=== PATIENT | female | born 1940 | race Caucasian/White ===

== ENCOUNTER 2024-09-22 03:46 | Inpatient (IN) | payer OTHER, SELFPAY ==
[2024-09-21 16:26] VITALS: BP 185/70
[2024-09-21 16:57] LABS: % Basophils 0.6 % (0-2); % Eosinophils 0.8 % (0-6); % Immature Granulocytes 0.4 % (0-0.5); % Lymphocytes 25.7 % (20.5-51.1); % Monocytes 5.5 % (1.7-9.3); Absolute Eosinophils 0.1 10^3/uL (0-0.7); Absolute Lymphocytes 1.8 10^3/uL (1.2-3.4); Absolute Monocytes 0.4 10^3/uL (0.1-0.6); Absolute Neutrophils 4.8 10^3/uL (1.4-6.5); Hematocrit 40.3 % (37.0-47.0); Hemoglobin 14.2 g/dL (12.0-16.0); Mean Corp Hgb Conc. 35.2 g/dL (33.0-37.0); Mean Corpuscular Hgb 31.3 pg (27.0-31.0); Mean Platelet Volume 9.8 fL (7.4-10.4); Nucleated Red Blood Cells % 0 %; Platelet Count 231 10^3/uL (130-400); Red Blood Cell Count 4.53 10^6/uL (4.20-5.40); White Blood Cell Count 7.1 10^3/uL (4.8-10.8)
[2024-09-21 17:04] LABS: ALT (SGPT) 15 U/L (0-35); AST (SGOT) 21 U/L (14-36); Albumin 4.4 g/dl (3.5-5.0); Alkaline Phosphatase 78 U/L (38-126); Blood Urea Nitrogen 14 mg/dl (7-17); Calcium 9.6 mg/dl (8.4-10.2); Carbon Dioxide 27 mmol/L (22-30); Chloride 102 mmol/L (98-107); Glucose 96 mg/dl (70-99); Potassium 4.3 mmol/L (3.5-5.1); Sodium 137 mmol/L (135-145); Total Bilirubin 0.3 mg/dl (0.2-1.3); Total Protein 7.3 g/dl (6.3-8.2); eGFR > 60.00
[2024-09-21 20:30] VITALS: BMI 22.9
[2024-09-21 20:33] VITALS: BP 162/61
[2024-09-21 21:00] VITALS: BP 164/58
[2024-09-21 22:00] VITALS: BP 159/62
--- NOTE | 2024-09-21 22:44 | ED.GENMED ---
History of Present Illness
General
Chief Complaint: Dizziness
Time Seen by Provider: 09/21/24 21:18
History of Present Illness
History of Present Illness:
83-year-old female with history of GERD and anxiety presenting for dizziness. Patient reports dizzy symptoms on and off for the past week. She reports send if worsened a few days ago when she stood up fast, felt also symptom onset, episode of
double vision which has since resolved. She went to an urgent care prior to arrival, was told that her blood pressure was very high and was told to come to the emergency department. Denies any known history of high blood pressure. Denies any
present chest pain or difficulty breathing. Denies any focal weakness or numbness to her extremities. Denies abdominal pain or GI symptoms. Does note some pressure in her ear, had a COVID infection about 2 weeks ago. Denies any present
dizziness. Denies additional acute medical complaints
Phy Exam
Physical Exam
Physical Exam:
General: Well-appearing, no clinical signs of dehydration, nontoxic and in no acute distress
HEENT: protecting airway, pupils equal and reactive bilaterally, extraocular movements intact
Neck: appears supple
CV: Normal heart rate, regular rhythm
Resp: No accessory muscle use, no increased work of breathing, lungs clear to auscultation bilaterally
Abd: Soft and non-distended, no tenderness to palpation
Extremities: No deformities, no swelling, no erythema
Neuro: alert, no focal neurologic deficit
: deferred
Rectal: deferred
Psych: Normal affect
Skin: Intact
Scores
NIH Stroke Score
Level of Consciousness: 0 - Alert
LOC Questions: 0-Answers both correctly
LOC Commands: 0-Performs both correctly
Best Horizontal Gaze: 0-Normal
Visual Langston: 0=Normal, no visual loss
Facial Palsy: 0=Normal, symmetrical
Motor - Right Arm: 0=No drift 10 seconds
Motor - Left Arm: 0=No drift 10 seconds
Motor - Right Le-No drift 5 seconds
Motor - Left Le-No drift 5 seconds
Limb Ataxia: 0-Absent
Sensation: 0-Normal
Best Language: 0-No aphasia
Dysarthria: 0-Normal
Extinction and Inattention: 0-No abnormality
Total Score:: 0
Course
Orders/Labs/Results
Orders:
Orders
09/21/24 16:31
Electrocardiogram (*1) Urgent
Reason for Study: Vertigo / Dizzy
EKG- Treatment ONCE
09/21/24 16:39
Complete Blood Count/With Diff Urgent
Comprehensive Metabolic Panel Urgent
09/21/24 22:41
Orthostatic VS- Treatment ONCE
09/22/24 00:01
CT Head & Neck Angio W/wo IV Urgent
Reason For Exam: dizzy, double vision episode
09/22/24 01:20
Aspirin 325 mg PO NOW STA
Clopidogrel Bisulfate [Plavix] 75 mg PO NOW STA
09/22/24 02:15
Admit/Transfer Patient As Directed
Co-Sign Provider:
Level of Care: Inpatient admission
Assign to:: Telemetry
Physician / Group: [facility]
Diagnosis: CVA
Reason for Telemetry: CVA/TIA
Date to Stop Telemetry: 09/25/24
Time to Stop Telemetry: 11:00
Reason for Hospitalization: CVA
Expected length of stay greater than two midnights?: Yes
ELOS- Estimated Length of Stay in days: 3
I certify the patient meets the requirements for IP care: Yes
Code Status As Directed
Resuscitation Status: Full Code
PRN Pain Medication Management As Directed
May give lesser potent ordered pain med per pt: Yes
preference::
Protocol:: Medication orders for pain may be administered in a
manner that supports deferring to patient preference
when the pt is:
- Requesting an ordered lesser potent pain medication.
Least to most potent pain medications are defined
as: acetaminophen < NSAID < tramadol < opioids
(morphine, oxycodone, hydromorphone).
- Requesting a lesser dose of the same medication IF
ORDERED.
- Requesting a less intrusive route of administration
if both routes are prescribed by the provider (PO <
IV).
09/22/24 04:25
Acetaminophen [Tylenol] 1,000 mg PO QID PRN
Lorazepam [Ativan] 0.5 mg PO HS PRN
09/22/24 04:25
Consult Notification Routine
Specialty to Notify: Neurology
Date consulting provider notified: 09/22/24
Time consulting provider notified: 08:52
Notified:: Provider
NEUROLOGY CONSULT Routine
Consulting Provider: Jim Boles
Was physician already notified: No
Reason for consult: CVA
Activity As Directed
Activity Level: Ambulate
With Assistance
EKG with chest pain [ECG as needed] As Directed
ECG as needed for:: Chest Pain
I/O [Intake/ Output] As Directed
Frequency: Per unit guidelines
NIH Stroke Scale As Directed
Neurological Checks As Directed
Frequency: q4h
Pneumatic Compression Sleeves As Directed
Type: Knee high
Vital Signs As Directed
Frequency: Per unit guidelines
Oxygen Therapy [O2 Therapy] [RESP] Routine
Titrate/Wean O2 to maintain O2 sat greater than (%): 94
Ot Eval And Treat Routine
PT Consult [Pt Eval And Treat] Routine
Activity Level: Ambulate
With Assistance
DX Deep Vein Thrombosis Video Routine
09/22/24 06:00
EKG [Electrocardiogram (*1)] IN AM
Reason for Study: Chest Pain
Regular
At Your Request: Full Participation
Does patient need a safe tray?: No
MR Brain Without Contrast IN AM
Comment:
Reason For Exam: CVA / TIA
Recent pill cam endoscopy?: No
09/22/24 06:15
Basic Metabolic Panel IN AM
Cardiovascular Evaluation IN AM
Complete Blood Count/No Diff IN AM
Glycohemoglobin (HgbA1c) Routine
TSH Reflex To Free T4 Routine
09/22/24 08:00
Aspirin Chewable [Low Strength Aspirin] 81 mg PO DAILY
Clopidogrel Bisulfate [Plavix] 75 mg PO DAILY
09/25/24 11:00
DC Protocol for Telemetry ONCE
Abnormal Lab Results
09/21/24
16:39
MCH 31.3 H pg
(27.0-31.0)
09/21/24 16:39
09/21/24 16:39
Vital Signs
Initial and Last Documented VS:
Initial Vital Signs
Temp Pulse Resp BP Pulse Ox
97.3 F 74 18 185/70 99
09/21/24 16:26 09/21/24 16:26 09/21/24 16:26 09/21/24 16:26 09/21/24 16:26
Last Documented Vital Signs
Temp Pulse Resp BP Pulse Ox
97.6 F 79 18 119/57 94
09/22/24 15:29 09/22/24 15:29 09/22/24 15:29 09/22/24 15:29 09/22/24 15:29
MDM/Problems Addressed
MDM/Problems Addressed:
83-year-old female with history of GERD and anxiety presenting for dizziness for the past week. Vital signs on arrival are significant for high blood pressure which has improved without intervention.
On exam patient is comfortable sitting comfortably, denies any present dizziness. Neurologic exam is benign, no focal neurologic deficits, and again patient is currently asymptomatic. Prior to arrival, was noted to have hypotension at urgent care
with primary concern for hypertensive urgency versus emergency. Lower suspicion for hypertensive urgency or emergency at this time given improved blood pressure without any medications. Patient had screening laboratory analysis and EKG completed
prior to my assessment, without any evidence of endorgan dysfunction. Vertiginous component is a consideration, notes that symptoms are worse first certain fast movements and when standing up. Also noted some left ear pressure. Normal appearance
of TMs bilaterally. Given preceding episode of double vision several days ago, will screen with CT brain and CT angio to ensure no acute occlusions or intracranial abnormality. Will also ambulate and obtain orthostatics
01:10 -CT is abnormal, shows age-indeterminate hypodensity within the left cerebellum, which does fit with patient's symptoms. On CT angio there is severe narrowing versus age-indeterminate partial occlusion of the right intradural vertebral
artery, as well as likely nonocclusive thrombus in the proximal basilar artery, and severe narrowing of the right BODY AND FENDER WORKER versus nonocclusive thrombus within the right BODY AND FENDER WORKER. In discussion with neurology, aspirin, Plavix, MRI. Will plan for admission
for continued stroke workup
*EKG
Interpreted by ED Provider?: Yes
EKG Intrepretation Date: 09/21/24
EKG Intrepretation Time: 22:46
Interpretation: normal
Comparison EKG: no comparison EKG present
Heart Rate: 66
Rate: normal
Rhythm: sinus
[place]: normal axis
Interval: normal interval
QRS Pattern: normal QRS
Ischemia: no ischemia
*Critical Care Note
Total Time (30-74mins, 75-104mins- exclusive of procedures): Not Applicable
ED Attending Note
-
Portions of this chart may have been created with voice recognition software.� Occasional wrong word or��sound alike� substitutions may have occurred due to the inherent limitations of voice recognition software.
Discharge Plan
Departure
Patient Disposition: Admit
Date of Disposition: 09/22/24
Time of Disposition: 01:22
Presentation/result/management discussed w/ accepting MD/DO: Hospitalist
Patient with high blood pressure during this ER visit?: Yes
Discharge Problem:
Dizziness, Cerebellar infarct
Interventions
Interventions:
*Risk Screen - Suicide Last Done: 09/21/24 20:30
*General Assessment Last Done: 09/21/24 20:30
*Neglect/Abuse Screening Last Done: 09/21/24 20:30
*ED COVID-19 Vaccine History Last Done: 09/21/24 20:30
*Nursing Disposition Last Done: 09/22/24 07:46
ED- Neurological Assessment Last Done: 09/22/24 03:15
ED- Cardiac Assessment Last Done: 09/21/24 20:35
ED Swallowing Screen Last Done: 09/22/24 01:32
Discharge Date and Time
Discharge Date/Time: 09/22/24 07:48
[2024-09-21 23:00] VITALS: BP 159/65
[2024-09-22] VITALS (12 sets, daily range): BP systolic 119–184; BP diastolic 47–76; PULSE 68–89; O2SAT 94–95
[2024-09-22] MEDS: ASPIRIN 325 MG PO (01:39)
[2024-09-22] MEDS: PLAVIX 75 MG PO ×2 (01:39→08:56)
--- NOTE | 2024-09-22 02:18 | HPS.HSE ---
Family Physician
-
Family Physician: Nory Lawrence
Chief Complaint
-
Dizziness
History of Present Illness
Patient is an 83y F with PMH significant for GERD and anxiety who presents to ED complaining of dizziness x several days. Patient states that symptoms initially started about 5 days ago. She noted dizziness, room spinning sensation and unsteady
gait. She states that she felt as if her eyes were 'jumping around'. She has had a mild / generalized headache. Patient states that she has not fallen despite her symptoms. She denies any priro history of vertigo or other similar symptoms.
Patient presented to the ED today for further evaluation.
Medical History
Past Medical History
Past Medical History: Reports Other
Additional Past Medical History:
GERD
Anxiety
Remote History of Migraine Headaches (none x several years)
Past Surgical History: Reports Other
Additional Past Surgical History:
Tubal Ligation
Social History
Tobacco: Former Smoker (Quit smoking 40 years ago. Approx 15 pack years total use.)
Alcohol: Occasional
Drug: None
Personal:
Living: With Family
Family History
Family History: Other (Father: CVA / Carotid Disease)
Allergies / Home Medications
Allergies reflects when Allergies were last updated in [facility].
Home Medications with original date entered in [facility]
Allergy/Medication List:
Allergies
Allergy/AdvReac Type Severity Reaction Status Date / Time
No Known Allergies Allergy Verified 09/21/24 20:30
Home Medications
acetaminophen 500 mg tablet 1,000 mg PO QID PRN back pain 09/22/24
lorazepam 0.5 mg tablet 0.5 mg PO HS PRN sleep 09/22/24
omeprazole 20 mg tablet,delayed release 20 mg PO DAILY 09/22/24
tramadol 50 mg tablet 50 mg PO DAILY PRN back pain 09/22/24
Review of Systems
-
History Source: Patient
A 12 point ROS was completed and negative except as noted: Yes
Constitutional: Reports Fatigue; Denies Fever or Chills
EENT: Denies Sore Throat
Respiratory: Denies Cough or Trouble Breathing
Cardiac: Denies Chest Pain or Palpitations
Abdomen/GI: Denies Abdominal Pain, Nausea, Vomiting or Diarrhea
: Denies Dysuria or Frequency
Musculoskeletal: Denies Joint Pain or Edema
Neurological: Reports Dizzy and Headache; Denies Weakness or Numbness
Psych: Denies Depression or Anxiety
Physical Exam
Vital Signs
Vital Signs
Temp Pulse Resp BP Pulse Ox
98.2 F 67 19 134/51 95
09/21/24 20:33 09/22/24 00:15 09/22/24 00:15 09/22/24 00:00 09/22/24 00:15
Physical Exam
General: Other (83y F in no acute distress.)
HEENT: Moist mucous membranes and PERRLA
Respiratory: Clear; No Wheezes, Rales or Rhonchi
Cardiac: S1/S2, Regular Rhythm and Murmur (II/ CORI)
GI: Soft, Non Tender, Non Distended and Normal Bowel Sounds
Musculoskeletal: No Clubbing, No Cyanosis and No Edema
Neuro: AO x 3
Laboratory Results
-
09/21/24 16:39
09/21/24 16:39
Laboratory Results
Total Bilirubin 0.3 mg/dl (0.2-1.3) 09/21/24 16:39
AST 21 U/L (14-36) 09/21/24 16:39
ALT 15 U/L (0-35) 09/21/24 16:39
Alkaline Phosphatase 78 U/L (38-126) 09/21/24 16:39
Impression/Plan
-
A/P: Patient is an 83y F with PMH significant for GERD and anxiety who presents to ED complaining of dizziness.
Cerebellar CVA
Posterior Circulation Stenosis / Thrombosis
ASCVD
- Admit for further evaluation and treatment.
- CT / CTA done in the ED today show multiple areas of hypodensity in the L cerebellum - likely consistent with patient's symptoms.
- In addition, CTA shows multiple areas of vascular disease - mostly in the posterior circulation and including the basilar artery, R vertebral artery and R RING CUTTER LATHE OPERATOR.
- Begin DAPT.
- Check lipid panel, A1C, etc.
- Follow neurologic exam.
- PT / OT evaluations.
- Neurology evaluation for additional recommendations.
- Check MRI / MRA in the AM for further evaluation.
- Follow for any new / worsening symptoms.
- Adjust med regimen for risk factor modification, BP control, etc.
GERD
- Stable. Continue PPI.
Generalized Anxiety
- Stable. Continue BZD PRN.
DVT Prophylaxis: SCDs
Code Status: Full
[2024-09-22 06:36] LABS: Hemoglobin 13.4 g/dL (12.0-16.0); Mean Corp Hgb Conc. 35.3 g/dL (33.0-37.0); Mean Platelet Volume 9.6 fL (7.4-10.4); Platelet Count 213 10^3/uL (130-400); Red Blood Cell Count 4.32 10^6/uL (4.20-5.40)
[2024-09-22 06:50] LABS: Blood Urea Nitrogen 12 mg/dl (7-17); Calcium 9.2 mg/dl (8.4-10.2); Carbon Dioxide 26 mmol/L (22-30); Chloride 103 mmol/L (98-107); Estimated Creatinine Clearance 60 ml/min; Glucose 105 mg/dl (70-99); HDL Cholesterol 40 mg/dl; LDL Cholesterol, Calculated 171 mg/dl; Potassium 4.3 mmol/L (3.5-5.1); Sodium 138 mmol/L (135-145); Total Cholesterol 254 mg/dl (50-199); Triglyceride 215 mg/dl (10-149); Very Low Density Lipoprotein 43 mg/dl (0-30); eGFR > 60.00
[2024-09-22 07:19] LABS: TSH Reflex To Free T4 8.43 uIU/ml (0.47-4.68)
[2024-09-22 07:50] LABS: Free T4 0.96 ng/dl (0.78-2.19)
--- NOTE | 2024-09-22 08:41 | CON.NEURO ---
Neuro Assessment/Plan
Assessment
CT of head and CT angiogram head and neck: 'IMPRESSION: Questionable acute/subacute infarct involving the left cerebellum. Consider further evaluation with MRI.
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 Severe narrowing/occlusions noted involving the right intradural vertebral artery, left P1/P2 junction and the right HAND LACER.'
Acute onset unsteadiness with abnormal CT of the head demonstrating changes in left cerebellum
Most likely the diagnosis is acute ischemic stroke
Patient was not a candidate for either tenecteplase or intra-arterial thrombectomy due to timeframe out of window
Plan
Agree with initiation of both aspirin 81 mg daily and clopidogrel 75 mg daily with discontinuance of clopidogrel after 21 days
Follow MRI of brain results
Based on significantly elevated LDL, greater than 70, initiate atorvastatin 40 mg daily
Check blood work for potential metabolic/inflammatory causes, specifically ESR and CRP
Rehabilitation evaluations
Goal of normotension
Goal of normoglycemia
DVT prophylaxis
Provide medical educational materials
Patient has a distant history of tobacco use, no indication at this time for tobacco counseling
Will continue to follow as needed.
Consultation
Order
Date of Consultation: 09/22/24
Requesting Provider: Hospitalists
Reason for Consult: Dizziness
Subjective/Objective
Subjective Data
Date of Service: September 22, 2024
Right-Handed
Patient reports subacute onset of intermittent dizziness and buzzing in ears, starting September 16, 2024. Approximately 10 days after COVID-19 infection.
She reports symptoms worsened a few days ago especially when she stood up with above symptoms and episodic double vision. Diplopia with and without tinnitus has been intermittent and persistent.
Due to worsening of severity of symptoms, she presented to an urgent care, was told that her blood pressure was elevated and was told to come to emergency department.
No other known modifying factors. No prior episodes of dizziness.
Objective Data
Vital Signs
Temp Pulse Resp BP Pulse Ox
36.8 C 62 24 128/48 94
09/21/24 20:33 09/22/24 07:00 09/22/24 07:00 09/22/24 06:00 09/22/24 07:00
Lab Results
09/22/24 06:15
09/22/24 06:15
Sodium 138 mmol/L (135-145) 09/22/24 06:15
Potassium 4.3 mmol/L (3.5-5.1) 09/22/24 06:15
BUN 12 mg/dl (7-17) 09/22/24 06:15
Glucose 105 mg/dl (70-99) H 09/22/24 06:15
Calcium 9.2 mg/dl (8.4-10.2) 09/22/24 06:15
LDL Cholesterol, Calc 171 mg/dl 09/22/24 06:15
Patient Allergies
No Known Allergies Allergy (Verified 09/21/24 20:30)
CVA Assessment
Onset of Stroke Symptoms
Onset of symptoms known: No
Date of onset of symptoms: 09/16/24
Time pt last seen normal is known: No
Date last time pt seen normal: 09/16/24
NIH Stroke Score
Level of Consciousness: 0 - Alert
LOC Questions: 0-Answers both correctly
LOC Commands: 0-Performs both correctly
Best Horizontal Gaze: 0-Normal
Visual Langston: 0=Normal, no visual loss
Facial Palsy: 0=Normal, symmetrical
Motor - Right Arm: 0=No drift 10 seconds
Motor - Left Arm: 0=No drift 10 seconds
Motor - Right Le-No drift 5 seconds
Motor - Left Le-No drift 5 seconds
Limb Ataxia: 0-Absent
Sensation: 0-Normal
Best Language: 0-No aphasia
Dysarthria: 0-Normal
Extinction and Inattention: 0-No abnormality
Total Score:: 0
Tenecteplase Contraindications
Inclusion and Exclusion criteria reviewed: Yes
IAT Contraindications: >6 hrs from onset/last seen normal and NIHSS < 6
Review of Systems
-
History Source: Patient
All other systems: Reviewed and negative
EENT: Negative Decreased Vision or Swallowing Difficulty
Respiratory: Negative Trouble Breathing
Cardiac: Negative Chest Pain
Abdomen/GI: Negative Incontinence of Stool
Genitourinary: Negative Incontinence
Musculoskeletal: Negative Back Pain or Neck Pain
Neuro: Headache; Negative Dizzy
Physical Exam
-
General: No Apparent Distress and Appears Stated Age
Eyes: OU Absent Papilledema, Able to visualize OU, Round OU, [place] Conjunctivae and No Ptosis
HEENT: Anicteric and Moist Mucous Membranes
Neck: Full Range of Motion
Respiratory: No Dyspnea
Cardiac: No JVD
GI: Non-distended
Skin: Unremarkable
Extremities: No Clubbing, No Cyanosis and No Edema
Psych: Negative Intact Judgement/Insight
Extended Neurological Exam
Mood & Affect: Mood Unremarkable and Affect Unremarkable
Attention Span & Concentration: Awake, Alert, Interactive and No Difficulty with 2 Step Request
Memory: Unremarkable
Tremor: Hand Tremor Absent and Head Tremor Absent
Speech: Quality Unremarkable and Quantity Unremarkable
Cranial Nerve II: Left Eye: Pupillary Reactivity Unremarkable, Pupillary Size Unremarkable and Visual [place]ston Intact
Cranial Nerve II: Right Eye: Pupillary Reactivity Unremarkable, Pupillary Size Unremarkable and Visual [place] Intact
Cranial Nerves III, IV, : Extraocular Movement: Extraocular Movement Full in all Directions and Slow Saccades
Cranial Nerve VII: Facial Symmetry: Normal Facial Symmetry
Cranial Nerve VIII: Hearing: Unremarkable Hearing to Normal Conversational Volume
Cranial Nerves IX, X: Palate Movement: Palate Elevation Symmetric
Cranial Nerve XI: Shoulder Shrug: Unremarkable
Cranial Nerve XII: Tongue Protusion: Midline
Muscle Strength, Overall: Full Throughout
Muscle Bulk & Tone: Bulk Unremarkable and Tone Unremarkable
Pronator Drift: No Drift in Upper Extremities
Touch Sensation: Unremarkable
Coordination: [id number] Testing Unremarkable
Babinski Sign: Absent Bilaterally
Gait & Station: Up from Seated Without Problem
Data Reviewed
-
CT-A: Report Reviewed
CT Head: Report Reviewed and Image Reviewed
MRI Head: Ordered and Image Reviewed
Labs: Ordered and Report Reviewed
Lipid Profile: Report Reviewed
Reviewed with: Nurse and Patient
Old Records: Summarized
Medications
-
Active Medications
Generic Name Dose Route Start Last Admin
Trade Name Freq PRN Reason Stop Dose Admin
Acetaminophen 1,000 mg 09/22/24 04:25
Acetaminophen 500 Mg Tablet PO 10/20/24 04:24
QID PRN
back pain
Aspirin 81 mg 09/22/24 08:00
Aspirin 81 Mg Chewable Tablet PO 10/20/24 07:59
DAILY ARNOLD
Clopidogrel Bisulfate 75 mg 09/22/24 08:00
Clopidogrel 75 Mg Tablet PO 10/20/24 07:59
DAILY ARNOLD
Lorazepam 0.5 mg 09/22/24 04:25
Lorazepam 0.5 Mg Tablet PO 10/20/24 04:24
HS PRN
sleep
Pantoprazole Sodium 40 mg 09/22/24 08:00
Pantoprazole 40 Mg Delayed Release Tablet PO 10/20/24 07:59
DAILY ARNOLD
Sodium Chloride 0 flush 09/22/24 05:00
Sodium Chloride 0.9% (Flush) Syringe IV 10/20/24 04:59
PER PROTOCOL ARNOLD
Home Medications
�Medication �Instructions �Recorded
acetaminophen 500 mg tablet 1,000 mg PO QID PRN back pain 09/22/24
lorazepam 0.5 mg tablet 0.5 mg PO HS PRN sleep 09/22/24
omeprazole 20 mg tablet,delayed 20 mg PO DAILY 09/22/24
release
tramadol 50 mg tablet 50 mg PO DAILY PRN back pain 09/22/24
Past History
Past History
ED Past Medical History: GERD, Psychiatric (Generalized anxiety disorder) and Other (Migraine headaches, COVID-19 infection)
ED Past Surgical History: Gynecological (Tubal ligation)
Social History
Tobacco: Other (Distant history)
Alcohol: Occasional
Drug: None
Personal:
Living: with family
Family History
Family History: Other (Reviewed and noncontributory)
[2024-09-22] MEDS: PROTONIX 40 MG PO (08:56)
[2024-09-22] MEDS: LOW STRENGTH ASPIRIN 81 MG PO (08:56)
[2024-09-22 09:06] LABS: Glycohemoglobin (HgbA1c) 5.4 % (4.0-5.6)
[2024-09-22] MEDS: ATIVAN 0.5 MG PO (09:18)
[2024-09-22] MEDS: ATIVAN 1 MG PO (09:30)
[2024-09-22 09:38] LABS: C-Reactive Protein < 5.00 mg/L (0.0-10.00)
[2024-09-22 10:14] LABS: Ferritin 89.9 ng/ml (11.1-264.0)
[2024-09-22 10:45] LABS: Folate 8.7 ng/ml (2.76-20); Vitamin B12 382 pg/ml (239-931)
[2024-09-22 11:00] LABS: Erythrocyte Sed Rate 22 mm/hour (0-20)
--- NOTE | 2024-09-22 12:05 | PTOTSP ---
Speech Therapy Evaluation:
Pt presents with oropharyngeal swallow function that appears grossly WFL. 1x subtle throat clear noted with thin liquids via straw, however no prior to subsequent s/sx of aspiration across trials. Pt with no significant predisposing risk factors of
dysphagia, however remains at an increased risk of aspiration given acute CVA. No CXR available at this time. WBC WNL. Pt passed 3oz nursing swallow screen.
Recommend:
1. Continue regular solids and thin liquids
2. Medications as tolerated
3. General aspiration/reflux precautions
4. Oral care 3x/daily
5. Monitor chest imaging
6. ST to briefly follow given acute CVA
--- NOTE | 2024-09-22 13:33 | CM ---
Addendum entered by Natalee Hawley RN 09/22/24 15:00:
Patient has been recommended for outpatient PT. CM confirmed with son that he will follow up for with outpatient PT.
PLAN: Home with outpatient PT.
Original Note:
CM met with patient in room. with son at bedside. CM confirmed demographics. Patient lives independently with who is medically frail. Patient does not have a history of VN, SNF or DME. Patient uses [facility] for medication services. Bre is
active with her PCP.
Patient stated that she has a first floor set up, but was able to negotiate stairs in her home.
CM discussed discharge planning options. Patient's son stated that they do not want her going to 'inpatient rehab'. Son stated that he feels she would not benefit from inpatient physical therapy. Son would be agreeable to home PT. CM stated that PT
will evaluate patient and CM will discuss recommendations.
--- NOTE | 2024-09-22 14:13 | W.PN.UPDATE ---
Update Note
Progress Note Update
Patient seen and examined after postmidnight admission. Currently denies dizziness. Vital signs stable. No acute distress, awake and alert, regular rate and rhythm, normal S1-S2. Clear to auscultation bilaterally. Cranial nerves II to XII are
intact. Case discussed with neurology (Dr. Boles). No further inpatient workup required at this time. ASA lifelong, plavix for 21 days total, cont statin. Medically cleared for discharge. Case management aware.
Total time spent on d/c = 31 min. This included today's physical exam, progress note, review of laboratory and diagnostic data, preparation of discharge documents and prescriptions, and discussions about the pt's hospital course and discharge plan
with the patient and other medical sales representative involved in the patient's care.
--- NOTE | 2024-09-22 14:21 | W.PN.UPDATE ---
Update Note
Progress Note Update
As per discussion with Dr. Boles over [facility] at 1418 on 09/22/24, the patient had a 'muscle reaction probably due to atorvastatin' in the past. For this reason statin is not being prescribed.
--- NOTE | 2024-09-22 14:23 | W.DCSUMMARY ---
Discharge Summary
Discharge Data
Date of Admission: 09/22/24
Date of Discharge: 09/22/24
-
Pending Results: No
Hospital Course
Primary diagnoses:
Bilateral cerebellar acute cerebrovascular accident
Secondary diagnoses:
Gastroesophageal reflux disease
Anxiety
Consults:
Neurology
Imaging:
MRI brain: Several scattered nonhemorrhagic acute/subacute infarcts involving the bilateral cerebellar hemispheres, left greater than right. 8 mm focus of susceptibility artifact along the right tentorium corresponding with dense calcification on
CT, consistent with benign dystrophic calcification with possible underlying meningioma.
CTA head/neck: Questionable acute/subacute infarct involving the left cerebellum. Consider further evaluation with MRI. 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 Severe narrowing/occlusions noted
involving the right intradural vertebral artery, left P1/P2 junction and the right [employer].
Hospital course: 83-year-old female who was admitted earlier today with a chief complaint of dizziness. The patient was found to have bilateral acute/subacute cerebrovascular accidents in the bilateral cerebral hemispheres, left greater than right.
She was seen in consultation by neurology. Aspirin lifelong and Plavix for a total of 21 days was recommended. Note, the patient had an adverse reaction to Lipitor in the past and therefore Dr. Boles recommended against statin therapy. The
patient is being discharged in medically stable condition.
Discharge Plan
-
Patient Disposition: Home (Routine Discharge)
Discharge Diagnosis/Procedures: Bilateral cerebellar acute cerebrovascular accident
Condition: Good
Diet: Low Fat and Low Cholesterol
Activity: With assistance and As tolerated
Driving Restrictions: Not until seen by your Dr
Referrals:
Jim Boles MD [Active] - in four to six weeks
Nory Lawrence MD [Family Provider] - in less than 1 week
Prescriptions:
New
cyanocobalamin (vitamin B-12) 1,000 mcg Tablet
1,000 mcg PO DAILY Qty: 0 0RF
clopidogrel 75 mg Tablet
75 mg PO DAILY Qty: 19 0RF
aspirin 81 mg Tablet,Chewable
81 mg PO DAILY Qty: 1 0RF
ezetimibe 10 mg Tablet
10 mg PO HS Qty: 30 0RF
Continued
tramadol 50 mg Tablet
50 mg PO DAILY PRN (Reason: back pain)
acetaminophen 500 mg Tablet
1,000 mg PO QID PRN (Reason: back pain)
lorazepam 0.5 mg Tablet
0.5 mg PO HS PRN (Reason: sleep)
omeprazole 20 mg Tablet,Delayed Release (Dr/Ec)
20 mg PO DAILY
Discharge Orders:
Discharge Patient (As Directed); Ordered 09/22/24
Ordered By: Brad Blanco
Discharge Date and Time
Print Language: CHINESE
[2024-09-22] MEDS: VITAMIN B-12 1000 MCG PO (15:29)
== END 2024-09-22 16:22 | disposition home or self-care (01) | DRG 66 ==
LOC: 1 ACUTE 03:46
PROVIDERS: Emergency Medicine; ADMITTING PHYSICIAN Hospitalist; ATTENDING PHYSICIAN Internal Medicine; CONSULT PHYSICIAN Psychiatry & Neurology Neurology; EMERGENCY PHYSICIAN Student in an Organized Health Care Education/Training Program; FAMILY PHYSICIAN Internal Medicine
DX: I63.549 Cerebral infarction due to unspecified occlusion or stenosis of unspecified cerebellar artery (principal); K21.9 Gastro-esophageal reflux disease without esophagitis; F41.1 Generalized anxiety disorder; Z87.891 Personal history of nicotine dependence; Z86.16 Personal history of COVID-19; Z79.82 Long term (current) use of aspirin
CPT/HCPCS: 70496; 70498; 70551; 80048; 80053; 80061; 82607; 82728; 82746; 83036; 84439; 84443; 85025; 85027; 85652; 86140; 92610; 93005; 97163; 97167; 99285; Q9967